=== PATIENT | female | born 1985 | race African-American/Black ===

== ENCOUNTER 2024-11-21 16:49 | Emergency (ER) | payer OTHER, MEDICAID ==
[~2024-11-21] VITALS: Ht 157.5 cm; Wt 88.1 kg
[2024-11-21 16:50] VITALS: TEMP 98.2
--- NOTE | 2024-11-21 17:04 | ED.PDOC ---
[employer] CONTACT PRINTER HPI Comments 39-year-old female with no reported PMHx presents with a chief complaint of vaginal bleeding while being currently with associated abdominal pain. Patient states that her pain is localized to her pelvic/suprapubic region, nonradiating, describes as cramping, and rates her pain a 7/10. Patient mentions that she is currently and her LMP was October 17, 2024. Patient reports that her bleeding quality is spotting and is only present when she wipes. No other symptoms or modifying factors present at this time. 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 Family History Family History: Reviewed,noncontributory to illness Social History Smoker: Non-Smoker Alcohol: Denies ETOH Use Drugs: Denies Drug Use Lives In: Home Constitutional: denies: chills, diaphoresis, fatigue, fever, malaise, sweats, weakness, others EENTM: denies: blurred vision, double vision, ear bleeding, ear discharge, ear drainage, ear pain, ear ringing, eye pain, eye redness, hearing loss, mouth p ain, mouth swelling, nasal discharge, nose bleeding, nose congestion, nose pain, photophobia, tearing, throat pain, throat swelling, voice changes, others Respiratory: denies: cough, hemoptysis, orthopnea, SOB at rest, shortness of br eath, SOB with excertion, stridor, wheezing, others Cardiovascular: denies: chest pain, dizzy spells, diaphoresis, Dyspnea on exertion, edema, irregular heart beat, left arm pain, lightheadedness, palpitations, PND, syncope, others Gastrointestinal: reports: abdominal pain; denies: abdomen distended, blood streaked bowels, constipated, diarrhea, dysphagia, difficulty swallowing, hematemesis, melena, nausea, poor appetite, poor fluid intake, rectal bleeding, rectal pain, vomiting, others Genitourinary: reports: abnormal vagina bleeding, ; denies: burning, dyspareunia, dysuria, flank pain, frequency, hematuria, incontinence, pain, vagina discharge, urgency, others Neurological: denies: dizziness, fainting, headache, left sided numbness, left sided weakness, numbness, paresthesia, pre-existing deficit, right sided numbness, right sided weakness, seizure, speech problems, tingling, tremors, weakness, others Musculoskeletal: denies: back pain, gout, joint pain, joint swelling, muscle pain, muscle stiffness, neck pain, others Integumetry: denies: bruises, change in color, change in hair/nails, dryness, laceration, lesions, lumps, rash, wounds, others Allergic/Immunocompromised: denies: Difficulty Healing, Frequent Infections, Hives, Itching, others Hematologic/Lymphatic: denies: anemia, blood clots, easy bleeding, easy bruising, swollen glands, others Endocrine: denies: excessive hunger, excessive sweating, excessive thirst, excessive urination, flushing, intolerance to cold, intolerance to heat, unexpla ined weight gain, unexplained weight loss, others Psychiatric: denies: anxiety, bipolar disorder, depression, hopeless, panic disorder, schizophrenia, sleepless, suicidal, others All Other Systems: Reviewed and Negative Physical Exam General Appearance: No Apparent Distress, Normal HEENT: Normal ENT Inspection, PERRL/EOMI, Pharynx Normal, TMs Normal Neck: Full Range of Motion, Non-Tender, Normal, Normal Inspection Respiratory: Chest Non-Tender, Lungs Clear, No Accessory Muscle Use, No Respir atory Distress, Normal Breath Sounds Cardiovascular: No Edema, No JVD, No Murmur, No Gallop, Normal Peripheral Pulses, Regular Rate/Rhythm Breast Exam: Deferred Gastrointestinal: No Organomegaly, Non Tender, No Pulsatile Mass, Normal Bowel Sounds, Soft, Other (Mild pelvic cramps) Genitalia: Deferred Pelvic: Deferred, Vaginal Bleeding Rectal: Deferred Extremities: No calf tenderness, Normal capillary refill, Normal inspection, Normal range of motion, Non-tender, No pedal edema Musculoskeletal : Apperance: Normal Neurologic: Alert, occupational therapy program director II-XII nml as Tested, No Motor Deficits, Normal Affect, Normal Mood, No Sensory Deficits Cerebellar Function: Normal Reflexes: Normal Skin: Dry, Normal Color, Warm Peripheral Pulses: 1+ carotid (R), 1+ carotid (L) Lymphatic: No Adenopathy Was a procedure done? 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) Vaginal Bleeding: - Threatened, Ectopic , Menstrual Bleeding, UTI Mass / Lesion: N/A Vaginal Discharge: , UTI X-Ray, Labs, Meds, VS Vital Signs Date Time Temp Pulse Resp B/P (MAP) Pulse Ox O2 Delivery O2 Flow Rate FiO2 11/21/24 16:50 98.2 89 16 153/94 97 98.2 Lab Test 11/21/24 17:49 11/21/24 17:19 Range/Units Urine Color Pending Urine Clarity Pending Urine pH Pending Urine Specific [place] Pending Urine Protein Pending Urine Ketones Pending Urine Blood Pending Urine Nitrite Pending Urine Bilirubin Pending Urine Urobilinogen Pending Urine Leukocyte Esterase Pending Urine RBC Pending Urine Microscopic WBC Pending Urine Squamous Epithelial Cells Pending Urine Bacteria Pending Urine Glucose Pending White Blood Count Pending Red Blood Count Pending Hemoglobin Pending Hematocrit Pending Mean Corpuscular Volume Pending Mean Corpuscular Hemoglobin Pending Mean Corpuscular Hemoglobin Concent Pending Red Cell Distribution Width Pending Platelet Count Pending Mean Platelet Volume Pending Neutrophils (%) (Auto) Pending Lymphocytes (%) (Auto) Pending Monocytes (%) (Auto) Pending Basophils (%) (Auto) Pending Neutrophils # (Auto) Pending Lymphocytes # (Auto) Pending Monocytes # (Auto) Pending Sodium Level Pending Potassium Level Pending Chloride Level Pending Carbon Dioxide Level Pending Anion Gap Pending Blood Urea Nitrogen Pending Creatinine Pending Glomerular Filtration Rate Calc Pending BUN/Creatinine Ratio Pending Serum Glucose Pending Calcium Level Pending Beta HCG, Quantitative Pending X-Ray, Labs, Meds, VS Comment Course in the emergency department eventful patient came in complaining of vaginal spotting and positive Ultrasound pending CBC pending BNP pending Urine pending Beta hCG pending Dr. Keane we will follow Time of 1ST Reevaluation: 17:26 Reevaluation 1ST: Unchanged Patient Education/Counseling: Diagnosis, Treatment, Prognosis, Need For Follow Up Family Education/Counseling: Diagnosis, Treatment, Prognosis, Need For Follow Up, No Family Present Assigned to Dr. dr keane we will follow up Change of Shift?: Yes Critical Care Note Critical Care Time?: No Stability Stability form required: No Heart Score Heart Score: Heart Score Response (Comments) Value History N/A 0 EKG N/A 0 Age N/A 0 Risk Factors N/A 0 Troponin N/A 0 Total 0 I personally scribed for DAMIAN BARCLAY MD ([email or web address]) on 11/21/24 at 17:04. Electronically submitted by Jesus Waldron ([email or web address]). DAMIAN BARCLAY MD Nov 21, 2024 17:04
[2024-11-21 17:51] LABS: Chloride 104 mmol/L (98-107); Potassium 4.1 mmol/L (3.5-5.1); Sodium 140 mmol/L (136-145)
[2024-11-21 17:52] LABS: Anion Gap 8 (5-15); Calcium 9.2 mg/dL (8.7-10.4); Carbon Dioxide 28 mmol/L (20-31)
[2024-11-21 17:57] LABS: BUN/Creatinine Ratio 8.2 (10.0-20.0)
[2024-11-21 18:20] LABS: Urine Protein, UAD 1+ (Negative)
[2024-11-21 18:21] LABS: Blood Urea Nitrogen 8 mg/dL (9-23); Glucose 114 mg/dL (74-106)
[2024-11-21 18:30] LABS: Hematocrit 36.1 % (36.0-46.0); Hemoglobin 11.7 g/dL (12.2-16.2); Mean Corpuscular Hemoglobin 26.5 pg (28.0-32.0); Mean Corpuscular Volume 81.9 fL (80.0-100.0); Nucleated Red Blood Cells % 0.1 %
--- NOTE | 2024-11-21 19:12 | DVH ---
Procedure: US PELVIC 11/21/2024 06:26 PM Indication: Pelvic pain Comparison: None Technique: Real-time grayscale and color images were obtained . FINDINGS: UTERUS: Anteverted, measuring 9.7 x 6.8 x 5.8 cm in length. Multiple heterogeneous, hypoechoic lesi ons are seen measuring up to 1.9 cm. ENDOMETRIAL STRIPE: 6 mm in thickness. Homogenous echotexture. No fluid in the endometrial canal. RIGH OVARY: 2.8 x 2.7 x 1.6 cm in length. Preserved vascular flow. No suspicious lesions identified . LEFT OVARY: 2.4 x 2.7 x 1.6 cm in length. Preserved vascular flow. No suspicious lesions identified. CUL-DE-SAC: No significant fluid noted. OTHER: None. IMPRESSION: 1. Probable uterine fibroids. Close clinical and sonographic follow-up is suggested.
[2024-11-21 21:12] VITALS: BP 147/101; PULSE 96; RESP 14; O2SAT 100
== END 2024-11-21 22:15 | disposition home or self-care (01) ==
LOC: ER 16:49
DX: O20.9 Hemorrhage in early pregnancy, unspecified (principal); Z3A.01 Less than 8 weeks gestation of pregnancy; Z88.5 Allergy status to narcotic agent
CPT/HCPCS: 36415; 76856; 80048; 81001; 84702; 85025